=== PATIENT | female | born 1945 | race Two or more races ===

== ENCOUNTER 2018-09-29 23:54 | Inpatient (IN) | payer MEDICARE, MEDICAID ==
[~2018-09-29] VITALS: Ht 149.9 cm; Wt 64.9 kg
[2018-09-30 01:22] LABS: Basophils # (auto) 0.1 uL; Hemoglobin 8.1 g/dL (12.2-16.2); Monocytes # (auto) 1.2 uL; Nucleated Red Blood Cells % 0.1 %
[2018-09-30 01:24] LABS: Basophils % (auto) 1.1 % (0.0-2.0); Eosinophils # (auto) 0.7 uL; Eosinophils % (auto) 10.1 % (0.0-7.0); Hematocrit 23.5 % (36.0-46.0); Lymphocytes # (auto) 1.7 uL; Lymphocytes % (auto) 24.6 % (10.0-50.0); Mean Corpuscular Hemoglobin 32.3 pg (28.0-32.0); Mean Corpuscular Hgb Conc. 34.4 g/dL (32.0-36.0); Monocytes % (auto) 16.4 % (0.0-12.0); Neutrophils # (auto) 3.4 uL; Neutrophils % (auto) 47.8 % (37.0-80.0); Platelet Count (auto) 159 10^3/uL (140-450); Red Cell Distribution Width 17.1 % (11.8-14.3)
[2018-09-30 01:39] LABS: INR 1.1 (0.9-1.15); Partial Thromboplastin Time 28.8 sec (23.64-32.05)
[2018-09-30 01:40] LABS: Albumin 2.4 g/dL (3.4-5.0); BUN/Creatinine Ratio 7.5; Calcium 7.9 mg/dL (8.5-10.1); Potassium 3.7 mmol/L (3.5-5.1)
[2018-09-30 01:45] LABS: Bilirubin, Total 0.9 mg/dL (0.2-1.0); Total Protein 7.3 g/dL (6.4-8.2)
[2018-09-30 01:57] LABS: Urine Bacteria FEW /hpf (None Seen); Urine Blood Negative /uL (Negative); Urine Hyaline Cast MOD /lpf (0 - 2); Urine Specific Gravity 1.017 (1.001-1.035); Urine WBC 10 /hpf (0 - 5)
[2018-09-30] MEDS ORDERED: MORPHINE SULFATE 4 MG/ML SYR/VIAL IV ONE (06:00)
[2018-09-30] MEDS ORDERED: ONDANSETRON HCL 4 MG/2 ML VIAL IV ONE (06:00)
[2018-09-30] MEDS ORDERED: ONDANSETRON HCL 4 MG/2 ML VIAL IV PRN (07:30)
[2018-09-30] MEDS ORDERED: HYDROcodone-ACET 5/325MG TAB PO PRN (07:30)
[2018-09-30] MEDS ORDERED: NITROGLYCERIN 0.4 MG SL TAB SL PRN (07:30)
[2018-09-30] MEDS ORDERED: ACETAMINOPHEN 325 MG TAB PO PRN (07:30)
[2018-09-30] MEDS ORDERED: MORPHINE SULF INJ 2 MG/ML SYRINGE 1ML IV PRN (07:30)
[2018-09-30] MEDS ORDERED: TEMAZEPAM 15 MG CAP PO PRN (07:30)
[2018-09-30] MEDS ORDERED: ENOXAPARIN SOD 60 MG/0.6 ML SYRINGE SC ONE (08:00)
[2018-09-30] MEDS: ASPirin 81 mg TAB PO SCH (10:05)
[2018-09-30] MEDS: PANTOPRAZOLE 40 MG TAB PO SCH (10:05)
[2018-09-30] MEDS ORDERED: NIFE60TA59 PO (10:11)
[2018-09-30] MEDS ORDERED: FURO40TA4 PO (10:11)
[2018-09-30] MEDS ORDERED: LACT10SO3 PO (10:11)
[2018-09-30] MEDS ORDERED: OMEP20TA PO (10:11)
[2018-09-30] MEDS ORDERED: PROP10TA57 PO (10:11)
[2018-09-30] MEDS ORDERED: ASPI81CH43 PO (10:11)
[2018-09-30] MEDS ORDERED: RIFA550T PO (10:11)
[2018-09-30] MEDS ORDERED: PROPRANOLOL HCL 20 MG TAB PO SCH (14:30)
[2018-09-30] MEDS ORDERED: NON (14:43)
[2018-09-30] MEDS ORDERED: PROMETHAZINE HCL 25 MG/ML 1ML ONE (15:28)
[2018-09-30] MEDS ORDERED: FUROSEMIDE 40 MG TAB PO ONE (15:30)
[2018-09-30] MEDS ORDERED: PROMETHAZINE HCL 25 MG/ML 1ML IV PRN (15:30)
[2018-09-30 15:36] LABS: Calcium 7.8 mg/dL (8.5-10.1); Potassium 3.8 mmol/L (3.5-5.1)
[2018-09-30 17:23] VITALS: BP 139/82
[2018-09-30] MEDS: FUROSEMIDE 20 MG/2 ML VIAL IV SCH (18:22)
[2018-09-30] MEDS: Ensure Enlive Strawberry 8oz Bottle PO SCH (18:22)
[2018-09-30 22:00] VITALS: BP 120/47
[2018-09-30] MEDS: LACTULOSE 20Gm/30ML SOLN PO SCH (22:14)
[2018-09-30] MEDS: rifAXIMin 550 MG TAB PO SCH (22:14)
[2018-10-01 05:00] VITALS: BP 119/44
[2018-10-01] MEDS: LACTULOSE 20Gm/30ML SOLN PO SCH ×3 (06:00→21:13)
[2018-10-01] MEDS: FUROSEMIDE 20 MG/2 ML VIAL IV SCH ×2 (06:17→18:17)
[2018-10-01 06:51] LABS: Basophils # (auto) 0.1 uL; Eosinophils # (auto) 0.9 uL; Hemoglobin 7.7 g/dL (12.2-16.2); Monocytes # (auto) 0.6 uL; Nucleated Red Blood Cells % 0.1 %
[2018-10-01 06:54] LABS: Basophils % (auto) 1.1 % (0.0-2.0); Eosinophils % (auto) 13.3 % (0.0-7.0); Hematocrit 22.5 % (36.0-46.0); Lymphocytes % (auto) 30.2 % (10.0-50.0); Mean Corpuscular Hemoglobin 32.3 pg (28.0-32.0); Mean Corpuscular Hgb Conc. 34.2 g/dL (32.0-36.0); Mean Corpuscular Volume 94.3 fL (80.0-100.0); Monocytes % (auto) 9.5 % (0.0-12.0); Neutrophils # (auto) 3.1 uL; Neutrophils % (auto) 45.9 % (37.0-80.0); Platelet Count (auto) 151 10^3/uL (140-450); Red Blood Cells 2.39 10^6/uL (4.0-5.20); Red Cell Distribution Width 16.8 % (11.8-14.3); White Blood Cell 6.7 10^3/uL (4.4-10.8)
[2018-10-01 06:58] LABS: BUN/Creatinine Ratio 9.5; Calcium 7.5 mg/dL (8.5-10.1); Potassium 3.7 mmol/L (3.5-5.1)
[2018-10-01] MEDS: Ensure Enlive Strawberry 8oz Bottle PO SCH ×3 (08:00→19:36)
[2018-10-01] MEDS ORDERED: ADENOSINE 52 MG in GIVE UN-DILUTED 0 ML IV STA (08:31)
[2018-10-01 09:38] VITALS: BP 130/46
[2018-10-01] MEDS: NIFEdipine ER 30 MG TAB PO SCH (10:00)
[2018-10-01] MEDS ORDERED: FUROSEMIDE 40 MG TAB PO SCH (10:00)
[2018-10-01] MEDS ORDERED: cefTRIAXone 1GM/50ML D5W 50 ML IV ONE (10:30)
[2018-10-01] MEDS: PANTOPRAZOLE 40 MG TAB PO SCH (11:32)
[2018-10-01] MEDS: rifAXIMin 550 MG TAB PO SCH ×2 (11:32→21:13)
[2018-10-01] MEDS: ASPirin 81 mg TAB PO SCH (11:33)
[2018-10-01 12:10] VITALS: BP 119/50
[2018-10-01] MEDS ORDERED: ALBUTEROL SULF 2.5 MG/0.5ML(0.5%) NEB SOLN NEB ONE (12:30)
[2018-10-01] MEDS ORDERED: IPRATROPIUM BROM 0.5 MG/2.5ML INH SOL NEB ONE (12:30)
[2018-10-01 13:00] VITALS: BP 132/50
[2018-10-01] MEDS ORDERED: SODIUM CHL 0.9% 1000 ML BAG XX ONE (13:00)
[2018-10-01] MEDS ORDERED: IPRATROPIUM BROM 0.5 MG/2.5ML INH SOL ONE (13:19)
[2018-10-01] MEDS ORDERED: ALBUTEROL SULF 2.5 MG/0.5ML(0.5%) NEB SOLN ONE (13:19)
[2018-10-01 17:11] VITALS: BP 120/39
[2018-10-01] MEDS ORDERED: EPOETIN ALFA 10,000 UNIT/1 ML VIAL SC ONE (21:00)
[2018-10-01 22:50] VITALS: BP 134/50
[2018-10-02 05:20] VITALS: BP 150/57
[2018-10-02 06:18] LABS: Basophils # (auto) 0.1 uL; Basophils % (auto) 0.9 % (0.0-2.0); Eosinophils % (auto) 14.8 % (0.0-7.0); Hematocrit 24.8 % (36.0-46.0); Hemoglobin 8.4 g/dL (12.2-16.2); Lymphocytes # (auto) 1.9 uL; Lymphocytes % (auto) 27.1 % (10.0-50.0); Mean Corpuscular Hemoglobin 32.2 pg (28.0-32.0); Mean Corpuscular Hgb Conc. 33.9 g/dL (32.0-36.0); Mean Corpuscular Volume 94.8 fL (80.0-100.0); Monocytes # (auto) 0.7 uL; Monocytes % (auto) 10.4 % (0.0-12.0); Neutrophils # (auto) 3.2 uL; Neutrophils % (auto) 46.8 % (37.0-80.0); Platelet Count (auto) 124 10^3/uL (140-450); Red Blood Cells 2.62 10^6/uL (4.0-5.20); Red Cell Distribution Width 16.7 % (11.8-14.3); White Blood Cell 6.9 10^3/uL (4.4-10.8)
[2018-10-02] MEDS: LACTULOSE 20Gm/30ML SOLN PO SCH ×3 (06:21→21:40)
[2018-10-02] MEDS: FUROSEMIDE 20 MG/2 ML VIAL IV SCH ×2 (06:22→18:44)
[2018-10-02 06:38] LABS: BUN/Creatinine Ratio 8.5; Calcium 7.2 mg/dL (8.5-10.1); Potassium 3.8 mmol/L (3.5-5.1)
[2018-10-02 09:00] VITALS: BP 150/61
[2018-10-02] MEDS: cefTRIAXone 1GM/50ML D5W 50 ML IV SCH (09:41)
[2018-10-02] MEDS: ASPirin 81 mg TAB PO SCH (09:41)
[2018-10-02] MEDS: rifAXIMin 550 MG TAB PO SCH ×2 (09:42→21:40)
[2018-10-02] MEDS: NIFEdipine ER 30 MG TAB PO SCH (09:42)
[2018-10-02] MEDS: Ensure Enlive Strawberry 8oz Bottle PO SCH ×3 (10:35→18:44)
[2018-10-02] MEDS: PANTOPRAZOLE 40 MG TAB PO SCH (12:38)
[2018-10-02 13:00] VITALS: BP 152/60
[2018-10-02 17:00] VITALS: BP 124/52
[2018-10-02 22:00] VITALS: BP 138/43
[2018-10-03 05:00] VITALS: BP 121/39
[2018-10-03] MEDS ORDERED: SODIUM CHL 0.9% 1000 ML BAG XX ONE (07:00)
[2018-10-03 07:13] LABS: Hemoglobin 7.9 g/dL (12.2-16.2)
[2018-10-03 07:16] LABS: Hematocrit 23.5 % (36.0-46.0); Mean Corpuscular Hemoglobin 31.9 pg (28.0-32.0); Mean Corpuscular Hgb Conc. 33.8 g/dL (32.0-36.0); Mean Corpuscular Volume 94.4 fL (80.0-100.0); Platelet Count (auto) 122 10^3/uL (140-450); Red Blood Cells 2.49 10^6/uL (4.0-5.20); Red Cell Distribution Width 16.2 % (11.8-14.3); White Blood Cell 7.3 10^3/uL (4.4-10.8)
[2018-10-03 07:28] LABS: Band Neutrophils % (manual) 0; Basophils % (manual) 0 (0.0-2.0); Blast Cells 0; Metamyelocytes % 0; Myelocytes % 0; Promyelocytes % 0; Reactive Lymphocytes 0
[2018-10-03 07:29] LABS: Albumin 2.1 g/dL (3.4-5.0); Calcium 7.9 mg/dL (8.5-10.1)
[2018-10-03 07:32] LABS: BUN/Creatinine Ratio 10.7; Bilirubin, Total 0.6 mg/dL (0.2-1.0); Total Protein 6.7 g/dL (6.4-8.2)
[2018-10-03 08:00] VITALS: BP 127/44
[2018-10-03] MEDS: cefTRIAXone 1GM/50ML D5W 50 ML IV SCH (08:05)
[2018-10-03 08:36] LABS: Eosinophils % (manual) 19 (0-7); Lymphocytes % (manual) 30 (10.0-50.0); Monocytes % (manual) 10 (0-12)
[2018-10-03 08:46] VITALS: BP 127/44
[2018-10-03] MEDS: NIFEdipine ER 30 MG TAB PO SCH (10:00)
[2018-10-03] MEDS: Ensure Enlive Strawberry 8oz Bottle PO SCH ×3 (10:22→18:10)
[2018-10-03] MEDS: PANTOPRAZOLE 40 MG TAB PO SCH (10:39)
[2018-10-03] MEDS: ASPirin 81 mg TAB PO SCH (10:39)
[2018-10-03] MEDS: rifAXIMin 550 MG TAB PO SCH ×2 (10:40→21:50)
[2018-10-03 12:00] VITALS: BP 136/51
[2018-10-03] MEDS ORDERED: MORPHINE SULF INJ 2 MG/ML SYRINGE 1ML IV PRN (16:00)
[2018-10-03] MEDS ORDERED: HYDROcodone-ACET 5/325MG TAB PO PRN (16:00)
[2018-10-03 17:00] VITALS: BP 133/54
[2018-10-03] MEDS: LACTULOSE 20Gm/30ML SOLN PO SCH ×2 (18:09→23:48)
[2018-10-03] MEDS ORDERED: EPOETIN ALFA 10,000 UNIT/1 ML VIAL SC ONE (21:00)
[2018-10-03 22:00] VITALS: BP 136/46
[2018-10-04] VITALS (35 sets, daily range): BP systolic 128–178; BP diastolic 43–74
[2018-10-04] MEDS: LACTULOSE 20Gm/30ML SOLN PO SCH ×3 (05:32→23:50)
[2018-10-04 06:28] LABS: Basophils # (auto) 0.1 uL; Lymphocytes # (auto) 1.9 uL; Mean Corpuscular Hemoglobin 32.1 pg (28.0-32.0); Monocytes # (auto) 0.8 uL
[2018-10-04 06:30] LABS: Basophils % (auto) 1.1 % (0.0-2.0); Eosinophils # (auto) 1.1 uL; Hematocrit 24.9 % (36.0-46.0); Hemoglobin 8.4 g/dL (12.2-16.2); Lymphocytes % (auto) 30.6 % (10.0-50.0); Mean Corpuscular Hgb Conc. 33.6 g/dL (32.0-36.0); Mean Corpuscular Volume 95.5 fL (80.0-100.0); Monocytes % (auto) 13.1 % (0.0-12.0); Neutrophils # (auto) 2.3 uL; Neutrophils % (auto) 36.9 % (37.0-80.0); Platelet Count (auto) 103 10^3/uL (140-450); Red Blood Cells 2.61 10^6/uL (4.0-5.20); Red Cell Distribution Width 16.7 % (11.8-14.3); White Blood Cell 6.2 10^3/uL (4.4-10.8)
[2018-10-04 06:35] LABS: INR 1.11 (0.9-1.15); Partial Thromboplastin Time 29.7 sec (23.64-32.05)
[2018-10-04 06:36] LABS: Eosinophils % (auto) 18.3 % (0.0-7.0)
[2018-10-04 06:48] LABS: BUN/Creatinine Ratio 9.3; Calcium 7.9 mg/dL (8.5-10.1); Potassium 4.1 mmol/L (3.5-5.1)
[2018-10-04] MEDS: Ensure Enlive Strawberry 8oz Bottle PO SCH ×2 (08:00→18:00)
[2018-10-04] MEDS ORDERED: IOHEXOL 350 MG/ML 100ML IJ ONE (09:44)
[2018-10-04] MEDS ORDERED: LIDOCAINE 2%HCL (LOCAL ANESTH.) INJ 20ML MDV ONE (09:44)
[2018-10-04] MEDS ORDERED: PROPRANOLOL HCL 20 MG TAB PO ONE (10:00)
[2018-10-04] MEDS: ASPirin 81 mg TAB PO SCH (10:00)
[2018-10-04] MEDS ORDERED: ANGIOMAX 250 MG VIAL IV ONE (10:05)
[2018-10-04] MEDS ORDERED: MIDAZOLAM HCL 1MG/1ML-2 ML VIAL ONE (10:06)
[2018-10-04] MEDS ORDERED: fentaNYL CITRATE 100 MCG/2 ML VL ONE (10:06)
[2018-10-04] MEDS ORDERED: SODIUM CHL 0.9% 50 ML ONE (10:06)
[2018-10-04] MEDS ORDERED: IODIXANOL 320MG/ML 100ML BTL IV ONE ×2 (10:34→10:37)
[2018-10-04] MEDS: NITROGLYCERIN 50MG/250ML 250 ML IV ONE ×2 (10:43→11:00)
[2018-10-04] MEDS ORDERED: NITROGLYCERIN 50MG/250ML 250 ML IV SCH (11:16)
[2018-10-04] MEDS: NIFEdipine ER 30 MG TAB PO SCH (12:00)
[2018-10-04] MEDS: SODIUM CHLORIDE 0.9% 1,000 ML IV SCH (12:00)
[2018-10-04 16:11] LABS: Calcium 7.7 mg/dL (8.5-10.1); Potassium 4.6 mmol/L (3.5-5.1)
[2018-10-04 16:15] LABS: BUN/Creatinine Ratio 8.8; Bilirubin, Total 0.7 mg/dL (0.2-1.0); Total Protein 6.5 g/dL (6.4-8.2)
[2018-10-04] MEDS: rifAXIMin 550 MG TAB PO SCH (21:32)
[2018-10-04] MEDS: ATORVASTATIN 20 MG TAB PO SCH (21:32)
[2018-10-05] VITALS (95 sets, daily range): BP systolic 114–181; BP diastolic 37–105
[2018-10-05] MEDS: SODIUM CHLORIDE 0.9% 1,000 ML IV SCH ×2 (01:32→18:10)
[2018-10-05 04:41] LABS: Basophils # (auto) 0.1 uL; Hemoglobin 7.4 g/dL (12.2-16.2); Neutrophils # (auto) 2.8 uL; Nucleated Red Blood Cells % 0.1 %; White Blood Cell 7.1 10^3/uL (4.4-10.8)
[2018-10-05 04:42] LABS: Basophils % (auto) 1.2 % (0.0-2.0); Eosinophils % (auto) 14.1 % (0.0-7.0); Hematocrit 22.3 % (36.0-46.0); Lymphocytes # (auto) 2.1 uL; Lymphocytes % (auto) 29.7 % (10.0-50.0); Mean Corpuscular Hemoglobin 31.6 pg (28.0-32.0); Mean Corpuscular Hgb Conc. 33.2 g/dL (32.0-36.0); Mean Corpuscular Volume 95.1 fL (80.0-100.0); Monocytes # (auto) 1.1 uL; Monocytes % (auto) 15.1 % (0.0-12.0); Neutrophils % (auto) 39.9 % (37.0-80.0); Platelet Count (auto) 101 10^3/uL (140-450); Red Blood Cells 2.35 10^6/uL (4.0-5.20); Red Cell Distribution Width 16.4 % (11.8-14.3)
[2018-10-05 04:57] LABS: BUN/Creatinine Ratio 10.1; Calcium 7.9 mg/dL (8.5-10.1); Potassium 4.3 mmol/L (3.5-5.1)
[2018-10-05] MEDS: LACTULOSE 20Gm/30ML SOLN PO SCH ×3 (06:00→23:30)
[2018-10-05] MEDS ORDERED: SODIUM CHL 0.9% 1000 ML BAG XX ONE (07:00)
[2018-10-05] MEDS: Ensure Enlive Strawberry 8oz Bottle PO SCH ×3 (08:00→18:00)
[2018-10-05] MEDS: PANTOPRAZOLE 40 MG TAB PO SCH ×2 (10:00→10:36)
[2018-10-05] MEDS: rifAXIMin 550 MG TAB PO SCH ×2 (10:36→21:50)
[2018-10-05] MEDS: ASPirin 81 mg TAB PO SCH (10:36)
[2018-10-05] MEDS: NIFEdipine ER 30 MG TAB PO SCH (15:31)
[2018-10-05] MEDS: cloNIDine HCL 0.1 MG TAB PO PRN (20:29)
[2018-10-05] MEDS: ATORVASTATIN 20 MG TAB PO SCH (21:50)
[2018-10-06] VITALS (50 sets, daily range): BP systolic 98–133; BP diastolic 31–80
[2018-10-06 04:35] LABS: Basophils # (auto) 0.1 uL; Basophils % (auto) 1.1 % (0.0-2.0); Eosinophils # (auto) 0.6 uL; Eosinophils % (auto) 9.6 % (0.0-7.0); Hematocrit 21.8 % (36.0-46.0); Hemoglobin 7.2 g/dL (12.2-16.2); Lymphocytes # (auto) 1.9 uL; Lymphocytes % (auto) 28.8 % (10.0-50.0); Mean Corpuscular Hemoglobin 32.2 pg (28.0-32.0); Mean Corpuscular Hgb Conc. 33.1 g/dL (32.0-36.0); Mean Corpuscular Volume 97.2 fL (80.0-100.0); Monocytes # (auto) 1.1 uL; Monocytes % (auto) 16.6 % (0.0-12.0); Neutrophils # (auto) 2.9 uL; Neutrophils % (auto) 43.9 % (37.0-80.0); Platelet Count (auto) 80 10^3/uL (140-450); Red Blood Cells 2.24 10^6/uL (4.0-5.20); Red Cell Distribution Width 17.4 % (11.8-14.3); White Blood Cell 6.5 10^3/uL (4.4-10.8)
[2018-10-06 04:45] LABS: Potassium 4.1 mmol/L (3.5-5.1)
[2018-10-06 04:56] LABS: Albumin 1.9 g/dL (3.4-5.0); BUN/Creatinine Ratio 8.2; Bilirubin, Total 0.7 mg/dL (0.2-1.0); Calcium 7.4 mg/dL (8.5-10.1)
[2018-10-06] MEDS: LACTULOSE 20Gm/30ML SOLN PO SCH ×4 (06:07→23:45)
[2018-10-06] MEDS: Ensure Enlive Strawberry 8oz Bottle PO SCH ×3 (08:00→18:00)
[2018-10-06] MEDS ORDERED: DEXTROSE (50%) 50ML SYRG IV PRN (09:45)
[2018-10-06] MEDS: ASPirin 81 mg TAB PO SCH (10:00)
[2018-10-06] MEDS: NIFEdipine ER 30 MG TAB PO SCH (10:00)
[2018-10-06] MEDS: PANTOPRAZOLE 40 MG TAB PO SCH (10:38)
[2018-10-06] MEDS: rifAXIMin 550 MG TAB PO SCH ×2 (10:40→22:00)
[2018-10-06] MEDS: SODIUM CHLORIDE 0.9% 1,000 ML IV SCH (10:52)
[2018-10-06] MEDS: InsuLIN REG 1unit/0.01ml Soln (100units/ml) SC SCH ×3 (11:30→22:00)
[2018-10-06] MEDS: ACCU-CHEK COMFORT CURVE STRIP VI SCH ×3 (11:36→22:21)
[2018-10-06] MEDS: ATORVASTATIN 20 MG TAB PO SCH (22:00)
[2018-10-07] VITALS: BP 127/42
[2018-10-07] MEDS: SODIUM CHLORIDE 0.9% 1,000 ML IV SCH (03:32)
[2018-10-07 04:00] VITALS: BP 122/39
[2018-10-07 05:37] LABS: Basophils # (auto) 0.1 uL; Hemoglobin 7.2 g/dL (12.2-16.2); Nucleated Red Blood Cells % 0.1 %; Red Blood Cells 2.23 10^6/uL (4.0-5.20)
[2018-10-07 05:39] LABS: Eosinophils # (auto) 0.9 uL; Eosinophils % (auto) 13.8 % (0.0-7.0); Hematocrit 21.2 % (36.0-46.0); Lymphocytes # (auto) 2.1 uL; Lymphocytes % (auto) 32.5 % (10.0-50.0); Mean Corpuscular Hemoglobin 32.4 pg (28.0-32.0); Mean Corpuscular Hgb Conc. 34.1 g/dL (32.0-36.0); Mean Corpuscular Volume 95.1 fL (80.0-100.0); Monocytes # (auto) 1.1 uL; Monocytes % (auto) 16.3 % (0.0-12.0); Neutrophils # (auto) 2.4 uL; Neutrophils % (auto) 36.4 % (37.0-80.0); Platelet Count (auto) 84 10^3/uL (140-450); Red Cell Distribution Width 16.8 % (11.8-14.3); White Blood Cell 6.5 10^3/uL (4.4-10.8)
[2018-10-07] MEDS: LACTULOSE 20Gm/30ML SOLN PO SCH ×4 (06:00→18:22)
[2018-10-07 06:04] LABS: Potassium 4.3 mmol/L (3.5-5.1)
[2018-10-07 06:15] LABS: BUN/Creatinine Ratio 10.3; Bilirubin, Total 0.7 mg/dL (0.2-1.0); Calcium 7.8 mg/dL (8.5-10.1); Total Protein 6.3 g/dL (6.4-8.2)
[2018-10-07] MEDS: InsuLIN REG 1unit/0.01ml Soln (100units/ml) SC SCH ×4 (07:00→22:00)
[2018-10-07] MEDS: ACCU-CHEK COMFORT CURVE STRIP VI SCH ×4 (07:29→22:11)
[2018-10-07 07:40] VITALS: BP 126/48
[2018-10-07] MEDS: Ensure Enlive Strawberry 8oz Bottle PO SCH ×3 (09:41→18:02)
[2018-10-07] MEDS: ASPirin 81 mg TAB PO SCH (09:50)
[2018-10-07] MEDS: rifAXIMin 550 MG TAB PO SCH ×2 (09:50→22:10)
[2018-10-07] MEDS: PANTOPRAZOLE 40 MG TAB PO SCH (09:50)
[2018-10-07] MEDS: NIFEdipine ER 30 MG TAB PO SCH ×2 (09:50→10:00)
[2018-10-07 11:45] VITALS: BP 117/47
[2018-10-07] MEDS ORDERED: ceFAZolin 1GM/50ML 50 ML IV ONE (13:00)
[2018-10-07] MEDS ORDERED: VANCOMYCIN 1GM/250ML 250 ML IV ONE (13:00)
[2018-10-07] MEDS ORDERED: ACCU-CHEK COMFORT CURVE STRIP VI ONE (13:00)
[2018-10-07 13:43] LABS: Eosinophils % (auto) 12.9 % (0.0-7.0); Hemoglobin 7.6 g/dL (12.2-16.2); Lymphocytes # (auto) 1.4 uL; Mean Corpuscular Volume 95.7 fL (80.0-100.0); Monocytes # (auto) 0.8 uL; Nucleated Red Blood Cells % 0.1 %
[2018-10-07 13:45] LABS: Basophils # (auto) 0 uL; Basophils % (auto) 0.9 % (0.0-2.0); Eosinophils # (auto) 0.7 uL; Hematocrit 22.7 % (36.0-46.0); Lymphocytes % (auto) 24.9 % (10.0-50.0); Mean Corpuscular Hemoglobin 31.9 pg (28.0-32.0); Mean Corpuscular Hgb Conc. 33.3 g/dL (32.0-36.0); Monocytes % (auto) 14.7 % (0.0-12.0); Neutrophils # (auto) 2.7 uL; Neutrophils % (auto) 46.6 % (37.0-80.0); Platelet Count (auto) 93 10^3/uL (140-450); Red Blood Cells 2.37 10^6/uL (4.0-5.20); Red Cell Distribution Width 17.1 % (11.8-14.3); White Blood Cell 5.8 10^3/uL (4.4-10.8)
[2018-10-07 13:59] LABS: Calcium 7.9 mg/dL (8.5-10.1); Potassium 4.5 mmol/L (3.5-5.1)
[2018-10-07 14:03] LABS: BUN/Creatinine Ratio 10.8; Bilirubin, Total 0.7 mg/dL (0.2-1.0); Total Protein 6.7 g/dL (6.4-8.2)
[2018-10-07 15:45] VITALS: BP 125/41
[2018-10-07 15:54] LABS: Urine Bacteria NONE SEEN /hpf (None Seen); Urine Blood Negative /uL (Negative); Urine Specific Gravity 1.024 (1.001-1.035); Urine WBC 2 /hpf (0 - 5)
[2018-10-07] MEDS ORDERED: TEMAZEPAM 15 MG CAP PO PRN (17:15)
[2018-10-07] MEDS ORDERED: HYDROcodone-ACET 5/325MG TAB PO PRN (17:15)
[2018-10-07] MEDS ORDERED: MORPHINE SULF INJ 2 MG/ML SYRINGE 1ML IV PRN (17:30)
[2018-10-07 20:00] VITALS: BP 134/48
[2018-10-07] MEDS ORDERED: MUPIROCIN 2% OINT 15gm or 22gm TOP SCH (21:00)
[2018-10-07] MEDS ORDERED: ASCORBIC ACID 500 MG TAB PO ONE (22:00)
[2018-10-07] MEDS: ATORVASTATIN 20 MG TAB PO SCH (22:09)
[2018-10-08] VITALS (15 sets, daily range): BP systolic 126–179; BP diastolic 46–71
[2018-10-08] MEDS ORDERED: CHLORHEXIDINE 4% TOPICAL soln 118ml TOP ONE (02:00)
[2018-10-08] MEDS: LACTULOSE 20Gm/30ML SOLN PO SCH ×4 (06:00→18:00)
[2018-10-08] MEDS: InsuLIN REG 1unit/0.01ml Soln (100units/ml) SC SCH ×4 (06:43→22:00)
[2018-10-08] MEDS: ACCU-CHEK COMFORT CURVE STRIP VI SCH ×4 (06:44→22:00)
[2018-10-08] MEDS ORDERED: SODIUM CHL 0.9% 1000 ML BAG XX ONE (07:00)
[2018-10-08] MEDS: Ensure Enlive Strawberry 8oz Bottle PO SCH ×3 (08:00→18:02)
[2018-10-08 09:54] LABS: Potassium 4.6 mmol/L (3.5-5.1)
[2018-10-08] MEDS: PANTOPRAZOLE 40 MG TAB PO SCH (10:00)
[2018-10-08] MEDS: rifAXIMin 550 MG TAB PO SCH ×2 (10:00→21:45)
[2018-10-08] MEDS: NIFEdipine ER 30 MG TAB PO SCH (10:00)
[2018-10-08 10:04] LABS: BUN/Creatinine Ratio 13.3; Bilirubin, Total 0.8 mg/dL (0.2-1.0); Calcium 8.1 mg/dL (8.5-10.1); Total Protein 6.7 g/dL (6.4-8.2)
[2018-10-08] MEDS ORDERED: CHLORHEXIDINE 0.12% ORAL rinse 473ML MT ONE (13:00)
[2018-10-08 17:46] LABS: Hematocrit 27.4 % (36.0-46.0); Hemoglobin 9.1 g/dL (12.2-16.2)
[2018-10-08] MEDS ORDERED: EPOETIN ALFA 10,000 UNIT/1 ML VIAL SC ONE (21:00)
[2018-10-08] MEDS: MUPIROCIN 2% OINT 15gm or 22gm TOP SCH (21:45)
[2018-10-08] MEDS: cloNIDine HCL 0.1 MG TAB PO PRN (21:46)
[2018-10-08] MEDS ORDERED: ASCORBIC ACID 500 MG TAB PO ONE (22:00)
[2018-10-08] MEDS: ATORVASTATIN 20 MG TAB PO SCH (22:00)
[2018-10-09] VITALS (51 sets, daily range): BP systolic 28–193; BP diastolic 17–71
[2018-10-09] MEDS ORDERED: CHLORHEXIDINE 4% TOPICAL soln 118ml TOP ONE (02:00)
[2018-10-09 04:45] LABS: Basophils # (auto) 0.1 uL; Basophils % (auto) 1.6 % (0.0-2.0); Calcium 7.9 mg/dL (8.5-10.1); Eosinophils # (auto) 0.8 uL; Eosinophils % (auto) 13.5 % (0.0-7.0); Hematocrit 27.2 % (36.0-46.0); Hemoglobin 8.9 g/dL (12.2-16.2); Lymphocytes # (auto) 1.5 uL; Lymphocytes % (auto) 26.1 % (10.0-50.0); Mean Corpuscular Hemoglobin 30.4 pg (28.0-32.0); Mean Corpuscular Hgb Conc. 32.8 g/dL (32.0-36.0); Mean Corpuscular Volume 92.7 fL (80.0-100.0); Monocytes # (auto) 0.9 uL; Monocytes % (auto) 15.5 % (0.0-12.0); Neutrophils # (auto) 2.5 uL; Neutrophils % (auto) 43.3 % (37.0-80.0); Nucleated Red Blood Cells % 0.1 %; Platelet Count (auto) 74 10^3/uL (140-450); Potassium 4.2 mmol/L (3.5-5.1); Red Blood Cells 2.93 10^6/uL (4.0-5.20); White Blood Cell 5.8 10^3/uL (4.4-10.8)
[2018-10-09 04:48] LABS: Red Cell Distribution Width 20.6 % (11.8-14.3)
[2018-10-09 04:49] LABS: BUN/Creatinine Ratio 13.5; Bilirubin, Total 1.1 mg/dL (0.2-1.0); Total Protein 6.5 g/dL (6.4-8.2)
[2018-10-09] MEDS: LACTULOSE 20Gm/30ML SOLN PO SCH ×3 (05:39→11:13)
[2018-10-09] MEDS: InsuLIN REG 1unit/0.01ml Soln (100units/ml) SC SCH ×2 (05:39→11:13)
[2018-10-09] MEDS ORDERED: CHLORHEXIDINE 0.12% ORAL rinse 473ML MT ONE (06:00)
[2018-10-09] MEDS ORDERED: HEPARIN 1,000 UNITS/ml 1ML VIAL ONE (06:11)
[2018-10-09] MEDS ORDERED: PAPAVERINE HCL 60 MG/2 ML 2ML VIAL ONE (06:11)
[2018-10-09] MEDS ORDERED: BACITRACIN INJ 50000 UNIT VIAL ONE (06:11)
[2018-10-09] MEDS ORDERED: NEOMYCIN-BACITRACIN-POLYM 15GM TOP OINT TOP ONE (06:12)
[2018-10-09] MEDS ORDERED: NITROGLYCERIN 50MG/250ML 250 ML IV ONE (06:26)
[2018-10-09] MEDS ORDERED: FENTANYL CITRATE ONE (06:47)
[2018-10-09] MEDS ORDERED: MORPHINE SULFATE INJECTION 1 ML ONE (06:48)
[2018-10-09] MEDS ORDERED: KETAMINE HCL 1 ML ONE (06:48)
[2018-10-09] MEDS ORDERED: MIDAZOLAM HCL 1MG/1ML-2 ML VIAL ONE (06:50)
[2018-10-09] MEDS ORDERED: fentaNYL CITRATE 5 ML ONE (06:52)
[2018-10-09] MEDS: MUPIROCIN 2% OINT 15gm or 22gm TOP SCH (07:00)
[2018-10-09] MEDS: ACCU-CHEK COMFORT CURVE STRIP VI SCH ×9 (07:00→23:00)
[2018-10-09] MEDS ORDERED: SODIUM CHL 0.9% 1000 ML BAG XX ONE (07:00)
[2018-10-09] MEDS ORDERED: ceFAZolin 1GM/50ML 50 ML IV ONE (07:00)
[2018-10-09] MEDS ORDERED: VANCOMYCIN 1GM/250ML 250 ML IV ONE (07:00)
[2018-10-09] MEDS: Ensure Enlive Strawberry 8oz Bottle PO SCH ×2 (08:00→11:13)
[2018-10-09] MEDS ORDERED: EPINEPHrine HCL 4 MG in D5W 5% 250 ML IV ONE (08:00)
[2018-10-09] MEDS ORDERED: AMINOCAPROIC ACID 10 GM in SODIUM CHL 0.9% 100 ML IV ONE (08:00)
[2018-10-09] MEDS ORDERED: PHENYLEPHRINE INJ 20 MG in SODIUM CHL 0.9% 250 ML IV ONE (08:00)
[2018-10-09] MEDS ORDERED: NOREPINEPHRINE 8 MG/250ML KIT 250 ML IV ONE (08:00)
[2018-10-09] MEDS ORDERED: HEPARIN 30000 UNITS in SODIUM CHLORIDE 0.9% 1000 ML IV ONE (08:00)
[2018-10-09] MEDS ORDERED: AMINOCAPROIC ACID 5 GM in SODIUM CHL 0.9% 250 ML IV ONE (08:00)
[2018-10-09] MEDS ORDERED: InsuLIN R (HUMAN) 100 UNITS in SODIUM CHL 0.9% 99 ML IV ONE (08:00)
[2018-10-09] MEDS ORDERED: MANNITOL FTV 25% 12.5 GM/50 ML 100 ML IV ONE (08:18)
[2018-10-09] MEDS ORDERED: PLASMA-LYTE A pH7.4 6,000 ML INJ ONE (08:19)
[2018-10-09] MEDS ORDERED: MANNITOL 20 % (20GM/100ML) 500 ML IV ONE (08:19)
[2018-10-09] MEDS ORDERED: ALBUMIN 25% IV ONE (08:19)
[2018-10-09] MEDS ORDERED: ALBUMIN 5% 250 ML IV ONE (08:26)
[2018-10-09] MEDS: PANTOPRAZOLE 40 MG TAB PO SCH (09:27)
[2018-10-09] MEDS: rifAXIMin 550 MG TAB PO SCH (09:27)
[2018-10-09] MEDS: NIFEdipine ER 30 MG TAB PO SCH (09:27)
[2018-10-09] MEDS ORDERED: PROTAMINE SULFATE 250 MG/25 ML VL IV ONE ×3 (12:00→13:45)
[2018-10-09] MEDS ORDERED: phytonadione 1 ML ONE (12:25)
[2018-10-09] MEDS ORDERED: VANCOMYCIN HCL 1000 MG VL ONE ×2 (12:36→12:46)
[2018-10-09] MEDS ORDERED: FUROSEMIDE INJECTION 0 ML ONE (13:18)
[2018-10-09] MEDS ORDERED: PROPOFOL 100 ML IV ONE (13:19)
[2018-10-09] MEDS ORDERED: FUROSEMIDE INJECTION 10 ML ONE (13:45)
[2018-10-09] MEDS ORDERED: ADENOSINE 6 MG/2 ML INJ IV ONE (14:05)
[2018-10-09] MEDS ORDERED: SODIUM BICARBONATE 8.4 % INJ 50ML VIAL IV ONE (14:05)
[2018-10-09] MEDS ORDERED: CALCIUM GLUC 4.65 MEQ/10ML IV ONE (14:05)
[2018-10-09] MEDS ORDERED: POTASSIUM CHL 2MEQ/ML 20ML IV ONE (14:05)
[2018-10-09] MEDS ORDERED: CALCIUM CHLOR(10%) 100MG/ML 10ML SYRINGE IV ONE (14:05)
[2018-10-09] MEDS ORDERED: MAGNESIUM SULF 50% 40 MEQ/10 ML VL IV ONE (14:05)
[2018-10-09] MEDS ORDERED: PHENYLEPHRINE HCL 10 MG/ML VL IV ONE (14:05)
[2018-10-09] MEDS ORDERED: TRANEXAMIC ACID 1,000 mg/10ml INJ VIAL IV ONE (14:05)
[2018-10-09 14:12] LABS: Potassium 4.3 mmol/L (3.5-5.1)
[2018-10-09 14:14] LABS: BUN/Creatinine Ratio 11.8
[2018-10-09 14:17] LABS: Bilirubin, Total 1.7 mg/dL (0.2-1.0); Total Protein 5.1 g/dL (6.4-8.2)
[2018-10-09 14:22] LABS: INR 1.61 (0.9-1.15); Partial Thromboplastin Time 44.8 sec (23.64-32.05)
[2018-10-09 15:00] LABS: Basophils # (auto) 0.1 uL; Basophils % (auto) 0.7 % (0.0-2.0); Eosinophils # (auto) 0.2 uL; Eosinophils % (auto) 1.9 % (0.0-7.0); Hematocrit 26.5 % (36.0-46.0); Hemoglobin 9.1 g/dL (12.2-16.2); Lymphocytes # (auto) 0.7 uL; Mean Corpuscular Hemoglobin 31.3 pg (28.0-32.0); Mean Corpuscular Hgb Conc. 34.5 g/dL (32.0-36.0); Mean Corpuscular Volume 90.9 fL (80.0-100.0); Monocytes # (auto) 0.5 uL; Monocytes % (auto) 5.2 % (0.0-12.0); Neutrophils # (auto) 7.5 uL; Neutrophils % (auto) 84.2 % (37.0-80.0); Platelet Count (auto) 69 10^3/uL (140-450); Red Blood Cells 2.91 10^6/uL (4.0-5.20)
[2018-10-09] MEDS: PROPOFOL 100 ML IV SCH (16:16)
[2018-10-09] MEDS: NITROGLYCERIN 50MG/250ML 250 ML IV SCH (16:16)
[2018-10-09] MEDS: SODIUM CHLORIDE 0.9% 500 ML IV SCH (16:30)
[2018-10-09] MEDS: VASOPRESSIN 50 UNITS in D5W 5% 247.5 ML IV SCH (16:31)
[2018-10-09] MEDS: NOREPINEPHRINE 8 MG/250ML KIT 250 ML IV SCH (16:31)
[2018-10-09] MEDS ORDERED: INSULIN DRIP 100 UNIT/100ML 100 ML IV SCH (16:31)
[2018-10-09] MEDS ORDERED: PHENYLEPHRINE IV 250 ML IV SCH (16:31)
[2018-10-09] MEDS ORDERED: DEXTROSE (50%) 50ML SYRG IV PRN (16:45)
[2018-10-09] MEDS ORDERED: MORPHINE SULFATE 4 MG/ML SYR/VIAL IV PRN ×2 (16:45)
[2018-10-09] MEDS ORDERED: ONDANSETRON HCL 4 MG/2 ML VIAL IV PRN (16:45)
[2018-10-09] MEDS ORDERED: SODIUM BICARBONATE 8.4% INJ 50ML SYRINGE IV PRN (16:45)
[2018-10-09] MEDS ORDERED: ceFAZolin 1GM/50ML 50 ML IV SCH (16:45)
[2018-10-09] MEDS ORDERED: MAGNESIUM SULFATE 1GM/100ML 100 ML IV PRN (16:45)
[2018-10-09] MEDS ORDERED: VANCOMYCIN 1GM/250ML 250 ML IV SCH (16:45)
[2018-10-09 16:57] LABS: Hemoglobin 7.5 g/dL (12.2-16.2)
[2018-10-09] MEDS ORDERED: PHENYLEPHRINE HCL 10 MG/ML VL ONE (17:02)
[2018-10-09 17:10] LABS: Mean Corpuscular Volume 91.3 fL (80.0-100.0)
[2018-10-09 17:11] LABS: Albumin 2.6 g/dL (3.4-5.0); BUN/Creatinine Ratio 12.2; Calcium 9.7 mg/dL (8.5-10.1); Magnesium 3.2 mg/dL (1.6-2.6); Potassium 4.4 mmol/L (3.5-5.1)
[2018-10-09 17:13] LABS: Hematocrit 21.7 % (36.0-46.0); Mean Corpuscular Hemoglobin 31.5 pg (28.0-32.0); Mean Corpuscular Hgb Conc. 34.5 g/dL (32.0-36.0); Platelet Count (auto) 52 10^3/uL (140-450); Red Blood Cells 2.38 10^6/uL (4.0-5.20); Red Cell Distribution Width 16.8 % (11.8-14.3); White Blood Cell 9.1 10^3/uL (4.4-10.8)
[2018-10-09] MEDS: PHENYLEPHRINE INJ 40 MG in SODIUM CHL 0.9% 250 ML IV SCH (17:17)
[2018-10-09 17:18] LABS: Basophils % (manual) 0 (0.0-2.0); Blast Cells 0; Eosinophils % (manual) 0 (0-7); INR 1.38 (0.9-1.15); Metamyelocytes % 0; Myelocytes % 0; Partial Thromboplastin Time 34.2 sec (23.64-32.05); Promyelocytes % 0; Reactive Lymphocytes 0
[2018-10-09 17:21] LABS: Bilirubin, Total 2.4 mg/dL (0.2-1.0); Total Protein 4.5 g/dL (6.4-8.2)
[2018-10-09 17:22] LABS: Phosphorus 5.8 mg/dL (2.5-4.90)
[2018-10-09] MEDS ORDERED: COAGULATION FACTOR VIIA (RECOM 2 MG INJ IV ONE (18:15)
[2018-10-09 19:17] LABS: Band Neutrophils % (manual) 7; Lymphocytes % (manual) 6 (10.0-50.0); Monocytes % (manual) 3 (0-12)
[2018-10-09] MEDS ORDERED: EPOETIN ALFA 10,000 UNIT/1 ML VIAL SC ONE (21:00)
[2018-10-09] MEDS: ceFAZolin 1GM/50ML 50 ML IV SCH (22:20)
[2018-10-09 22:43] LABS: Eosinophils # (auto) 0 uL; Monocytes # (auto) 0.7 uL; Nucleated Red Blood Cells % 0.1 %
[2018-10-09 22:45] LABS: Basophils # (auto) 0 uL; Basophils % (auto) 0.1 % (0.0-2.0); Lymphocytes # (auto) 0.4 uL; Lymphocytes % (auto) 3.4 % (10.0-50.0); Mean Corpuscular Hemoglobin 31.3 pg (28.0-32.0); Mean Corpuscular Hgb Conc. 34.1 g/dL (32.0-36.0); Mean Corpuscular Volume 91.6 fL (80.0-100.0); Monocytes % (auto) 6.1 % (0.0-12.0); Neutrophils # (auto) 10.3 uL; Neutrophils % (auto) 90.4 % (37.0-80.0); Platelet Count (auto) 148 10^3/uL (140-450); Red Blood Cells 2.18 10^6/uL (4.0-5.20); Red Cell Distribution Width 15.8 % (11.8-14.3); White Blood Cell 11.4 10^3/uL (4.4-10.8)
[2018-10-09 22:52] LABS: Hemoglobin 6.8 g/dL (12.2-16.2)
[2018-10-09 22:56] LABS: INR 0.99 (0.9-1.15); Partial Thromboplastin Time 31.3 sec (23.64-32.05)
[2018-10-09 23:01] LABS: BUN/Creatinine Ratio 8.2; Calcium 8.1 mg/dL (8.5-10.1); Magnesium 2.7 mg/dL (1.6-2.6); Potassium 4.2 mmol/L (3.5-5.1)
[2018-10-09] MEDS: VANCOMYCIN 1GM/250ML 250 ML IV SCH (23:31)
[2018-10-10] VITALS (111 sets, daily range): BP systolic 1–271; BP diastolic 0–266
[2018-10-10] MEDS: ACCU-CHEK COMFORT CURVE STRIP VI SCH ×20 (00:29→23:00)
[2018-10-10 04:26] LABS: Basophils # (auto) 0 uL; Basophils % (auto) 0.1 % (0.0-2.0); Eosinophils # (auto) 0 uL; Eosinophils % (auto) 0.1 % (0.0-7.0); Hematocrit 29.7 % (36.0-46.0); Hemoglobin 9.9 g/dL (12.2-16.2); Lymphocytes # (auto) 0.6 uL; Lymphocytes % (auto) 4.6 % (10.0-50.0); Mean Corpuscular Hemoglobin 30.6 pg (28.0-32.0); Mean Corpuscular Hgb Conc. 33.4 g/dL (32.0-36.0); Mean Corpuscular Volume 91.6 fL (80.0-100.0); Monocytes # (auto) 0.7 uL; Monocytes % (auto) 6.2 % (0.0-12.0); Neutrophils # (auto) 10.7 uL; Nucleated Red Blood Cells % 0.1 %; Platelet Count (auto) 108 10^3/uL (140-450); Red Blood Cells 3.24 10^6/uL (4.0-5.20); Red Cell Distribution Width 15.7 % (11.8-14.3)
[2018-10-10] MEDS ORDERED: COAGULATION FACTOR VIIA (RECOM 2 MG INJ IV ONE (04:30)
[2018-10-10 04:45] LABS: INR 1.14 (0.9-1.15); Partial Thromboplastin Time 42.1 sec (23.64-32.05)
[2018-10-10 04:51] LABS: BUN/Creatinine Ratio 7.8; Calcium 8.4 mg/dL (8.5-10.1); Magnesium 2.8 mg/dL (1.6-2.6); Potassium 4.8 mmol/L (3.5-5.1)
[2018-10-10] MEDS ORDERED: phytonadione 10 MG in SODIUM CHL 0.9% 50 ML IV ONE (05:00)
[2018-10-10] MEDS: ceFAZolin 1GM/50ML 50 ML IV SCH ×2 (05:00→13:10)
[2018-10-10] MEDS ORDERED: PHYTONADIONE (VIT K)10 MG/ML 1ML VIAL SUBCUT ONE (05:00)
[2018-10-10] MEDS: CALCIUM GLUC 4.65meq/50ml D5AE 50 ML IV PRN (06:45)
[2018-10-10] MEDS ORDERED: CALCIUM GLUC 4.65meq/50ml D5AE 50 ML IV ONE ×2 (06:45→19:15)
[2018-10-10] MEDS ORDERED: DESMOPRESSIN INJECTION 20 MCG in SODIUM CHL 0.9% 50 ML IV ONE (07:00)
[2018-10-10] MEDS ORDERED: AMINOCAPROIC ACID IV ONE ×2 (08:00)
[2018-10-10] MEDS ORDERED: COAGULATION FACTOR VIIA (RECOM 5 MG INJ IV ONE (08:00)
[2018-10-10] MEDS ORDERED: SODIUM CHL 0.9% IV ONE ×2 (08:00)
[2018-10-10] MEDS ORDERED: SODIUM BICARBONATE 8.4 % INJ 50ML VIAL IV ONE ×5 (08:47→17:15)
[2018-10-10 09:25] LABS: Basophils # (auto) 0 uL; Eosinophils # (auto) 0 uL; Hemoglobin 7.4 g/dL (12.2-16.2); Lymphocytes # (auto) 0.9 uL; Mean Corpuscular Hgb Conc. 33.1 g/dL (32.0-36.0); Monocytes # (auto) 0.9 uL; Neutrophils # (auto) 11.2 uL
[2018-10-10 09:26] LABS: Basophils % (auto) 0.2 % (0.0-2.0); Eosinophils % (auto) 0.2 % (0.0-7.0); Hematocrit 22.2 % (36.0-46.0); Lymphocytes % (auto) 6.7 % (10.0-50.0); Mean Corpuscular Hemoglobin 30.4 pg (28.0-32.0); Mean Corpuscular Volume 91.6 fL (80.0-100.0); Monocytes % (auto) 7.2 % (0.0-12.0); Neutrophils % (auto) 85.7 % (37.0-80.0); Nucleated Red Blood Cells % 0.2 %; Platelet Count (auto) 85 10^3/uL (140-450); Red Blood Cells 2.42 10^6/uL (4.0-5.20); Red Cell Distribution Width 16.1 % (11.8-14.3); White Blood Cell 13.1 10^3/uL (4.4-10.8)
[2018-10-10 09:41] LABS: INR 1.29 (0.9-1.15); Partial Thromboplastin Time 47.6 sec (23.64-32.05)
[2018-10-10] MEDS: VANCOMYCIN 1GM/250ML 250 ML IV SCH (09:44)
[2018-10-10 09:46] LABS: Albumin 1.8 g/dL (3.4-5.0); Calcium 8.8 mg/dL (8.5-10.1); Potassium 4.5 mmol/L (3.5-5.1)
[2018-10-10 10:00] LABS: BUN/Creatinine Ratio 7.3; Bilirubin, Total 3.1 mg/dL (0.2-1.0); Total Protein 3.5 g/dL (6.4-8.2)
[2018-10-10] MEDS: PANTOPRAZOLE 40 MG/10 ML VIAL INJ IV SCH (10:00)
[2018-10-10 10:22] LABS: Phosphorus 9.1 mg/dL (2.5-4.90)
[2018-10-10] MEDS ORDERED: D5W 5% 1,000 ML IV SCH ×2 (11:15→12:00)
[2018-10-10] MEDS ORDERED: DEXTROSE (25%) 10 ML SYRG IV ONE (11:15)
[2018-10-10 12:34] LABS: Lactic Acid w/Reflex 25.4 mmol/L (0.4-2.0)
[2018-10-10 13:41] LABS: Magnesium 2.9 mg/dL (1.6-2.6); Potassium 4.4 mmol/L (3.5-5.1)
[2018-10-10] MEDS: COAGULATION FACTOR VIIA (RECOM 2 MG INJ IV SCH ×4 (14:00→23:40)
[2018-10-10] MEDS: NOREPINEPHRINE 8 MG/250ML KIT 250 ML IV SCH (14:27)
[2018-10-10] MEDS: PHENYLEPHRINE INJ 40 MG in SODIUM CHL 0.9% 250 ML IV SCH ×2 (14:31→18:08)
[2018-10-10] MEDS ORDERED: SODIUM BICARBONATE 50ML VIAL 150 ML in D5W/SOD CHL 0.45% 1,000 ML IV SCH (15:00)
[2018-10-10] MEDS ORDERED: SODIUM BICARBONATE 8.4% INJ 50ML SYRINGE ONE (15:06)
[2018-10-10] MEDS ORDERED: IOHEXOL 300 MG/ML 100ML BOTTLE IJ ONE (15:09)
[2018-10-10] MEDS ORDERED: IOHEXOL 350 MG/ML 100ML IJ ONE (15:16)
[2018-10-10] MEDS: PROPOFOL 100 ML IV SCH (15:30)
[2018-10-10] MEDS: VASOPRESSIN 50 UNITS in D5W 5% 247.5 ML IV SCH (16:31)
[2018-10-10] MEDS: NITROGLYCERIN 50MG/250ML 250 ML IV SCH (16:31)
[2018-10-10] MEDS: SODIUM CHLORIDE 0.9% 500 ML IV SCH (17:09)
[2018-10-10] MEDS ORDERED: VANCOMYCIN PER PHARMACY 0 MG IV SCH (17:45)
[2018-10-10 18:30] LABS: Basophils # (auto) 0 uL; Nucleated Red Blood Cells % 0.5 %
[2018-10-10] MEDS ORDERED: GOLYTELY 4L KIT PO ONE (18:30)
[2018-10-10 18:35] LABS: Basophils % (auto) 0.3 % (0.0-2.0); Eosinophils # (auto) 0.1 uL; Eosinophils % (auto) 0.5 % (0.0-7.0); Hematocrit 20.4 % (36.0-46.0); Lymphocytes # (auto) 2.1 uL; Lymphocytes % (auto) 14.8 % (10.0-50.0); Mean Corpuscular Hemoglobin 30.8 pg (28.0-32.0); Mean Corpuscular Hgb Conc. 32.2 g/dL (32.0-36.0); Mean Corpuscular Volume 95.7 fL (80.0-100.0); Monocytes % (auto) 6.9 % (0.0-12.0); Neutrophils # (auto) 11.2 uL; Neutrophils % (auto) 77.5 % (37.0-80.0); Platelet Count (auto) 64 10^3/uL (140-450); Red Blood Cells 2.13 10^6/uL (4.0-5.20); Red Cell Distribution Width 15.8 % (11.8-14.3); White Blood Cell 14.4 10^3/uL (4.4-10.8)
[2018-10-10 18:36] LABS: Hemoglobin 6.6 g/dL (12.2-16.2)
[2018-10-10 18:47] LABS: Albumin 1.3 g/dL (3.4-5.0); Calcium 8.1 mg/dL (8.5-10.1); Magnesium 3.1 mg/dL (1.6-2.6); Potassium 4.7 mmol/L (3.5-5.1)
[2018-10-10] MEDS: ALBUTEROL SULF 2.5 MG/0.5ML(0.5%) NEB SOLN NEB SCH ×2 (18:54→23:55)
[2018-10-10] MEDS: IPRATROPIUM BROM 0.5 MG/2.5ML INH SOL NEB SCH ×2 (18:55→23:55)
[2018-10-10 19:03] LABS: Bilirubin, Total 2.3 mg/dL (0.2-1.0); Total Protein 2.8 g/dL (6.4-8.2)
[2018-10-10 19:38] LABS: Urine WBC None Seen /hpf (0 - 5)
[2018-10-10 19:44] LABS: Phosphorus 12.4 mg/dL (2.5-4.90)
[2018-10-10 19:48] LABS: INR 1.72 (0.9-1.15)
[2018-10-10 20:07] LABS: Urine Bacteria FEW /hpf (None Seen); Urine Blood 1+ /uL (Negative); Urine Hyaline Cast MOD /lpf (0 - 2)
[2018-10-10 20:24] LABS: Partial Thromboplastin Time 83.4 sec (23.64-32.05)
[2018-10-10] MEDS ORDERED: INSULIN DRIP 100 UNIT/100ML 100 ML IV SCH (20:39)
[2018-10-10] MEDS: INSULIN DRIP 100 UNIT/100ML 100 ML IV SCH (21:30)
[2018-10-10] MEDS: MEROPENEM 500MG IVPB 50 ML IV SCH (22:00)
[2018-10-10] MEDS: SODIUM BICARBONATE 50ML VIAL 150 ML in D5W/SOD CHL 0.45% 1,000 ML IV SCH (22:20)
[2018-10-10] MEDS ORDERED: ALBUMIN 5% 250 ML IV ONE (23:45)
[2018-10-11] VITALS (112 sets, daily range): BP systolic 24–167; BP diastolic 9–50
[2018-10-11 00:16] LABS: Basophils # (auto) 0.1 uL; Basophils % (auto) 0.4 % (0.0-2.0); Eosinophils # (auto) 0.1 uL; Eosinophils % (auto) 0.6 % (0.0-7.0); Hematocrit 26.1 % (36.0-46.0); Hemoglobin 8.5 g/dL (12.2-16.2); Lymphocytes % (auto) 13.6 % (10.0-50.0); Mean Corpuscular Hemoglobin 31.1 pg (28.0-32.0); Mean Corpuscular Hgb Conc. 32.6 g/dL (32.0-36.0); Mean Corpuscular Volume 95.2 fL (80.0-100.0); Monocytes # (auto) 0.2 uL; Monocytes % (auto) 1.5 % (0.0-12.0); Neutrophils # (auto) 12.2 uL; Neutrophils % (auto) 83.9 % (37.0-80.0); Platelet Count (auto) 125 10^3/uL (140-450); Red Blood Cells 2.74 10^6/uL (4.0-5.20); Red Cell Distribution Width 15.8 % (11.8-14.3); White Blood Cell 14.5 10^3/uL (4.4-10.8)
[2018-10-11] MEDS: ACCU-CHEK COMFORT CURVE STRIP VI SCH ×22 (00:19→20:00)
[2018-10-11 00:39] LABS: INR 1.83 (0.9-1.15)
[2018-10-11 00:47] LABS: Partial Thromboplastin Time 88.3 sec (23.64-32.05)
[2018-10-11 00:48] LABS: BUN/Creatinine Ratio 7.1; Calcium 7.9 mg/dL (8.5-10.1); Potassium 4.8 mmol/L (3.5-5.1)
[2018-10-11] MEDS: CALCIUM GLUC 4.65meq/50ml D5AE 50 ML IV PRN (01:25)
[2018-10-11] MEDS: COAGULATION FACTOR VIIA (RECOM 2 MG INJ IV SCH ×6 (02:00→22:45)
[2018-10-11 04:09] LABS: Hematocrit 23.3 % (36.0-46.0); Hemoglobin 7.9 g/dL (12.2-16.2); Mean Corpuscular Hemoglobin 31.5 pg (28.0-32.0); Mean Corpuscular Volume 92.6 fL (80.0-100.0); Platelet Count (auto) 103 10^3/uL (140-450); Red Blood Cells 2.52 10^6/uL (4.0-5.20); Red Cell Distribution Width 15.7 % (11.8-14.3); White Blood Cell 18.3 10^3/uL (4.4-10.8)
[2018-10-11 04:11] LABS: Calcium 7.7 mg/dL (8.5-10.1)
[2018-10-11 04:13] LABS: BUN/Creatinine Ratio 6.9
[2018-10-11 04:14] LABS: Basophils % (manual) 0 (0.0-2.0); Blast Cells 0; Eosinophils % (manual) 0 (0-7); Metamyelocytes % 0; Myelocytes % 0; Promyelocytes % 0; Reactive Lymphocytes 0
[2018-10-11 04:16] LABS: INR 2.19 (0.9-1.15)
[2018-10-11 04:19] LABS: Partial Thromboplastin Time 70.7 sec (23.64-32.05)
[2018-10-11] MEDS: SODIUM BICARBONATE 50ML VIAL 150 ML in D5W/SOD CHL 0.45% 1,000 ML IV SCH ×2 (04:36→11:38)
[2018-10-11] MEDS: PHENYLEPHRINE INJ 40 MG in SODIUM CHL 0.9% 250 ML IV SCH ×3 (06:03→16:54)
[2018-10-11] MEDS ORDERED: ALBUMIN 5% 250 ML IV ONE ×3 (06:36→07:30)
[2018-10-11 06:49] LABS: Band Neutrophils % (manual) 23; Lymphocytes % (manual) 11 (10.0-50.0); Monocytes % (manual) 7 (0-12)
[2018-10-11] MEDS ORDERED: SODIUM CHL 0.9% 1000 ML BAG XX ONE (07:00)
[2018-10-11] MEDS: IPRATROPIUM BROM 0.5 MG/2.5ML INH SOL NEB SCH ×3 (07:03→18:20)
[2018-10-11] MEDS: ALBUTEROL SULF 2.5 MG/0.5ML(0.5%) NEB SOLN NEB SCH ×3 (07:03→18:20)
[2018-10-11] MEDS ORDERED: ALBUMIN 25% 100 ML IV ONE ×2 (07:23→07:30)
[2018-10-11] MEDS: VASOPRESSIN 50 UNITS in D5W 5% 247.5 ML IV SCH (07:40)
[2018-10-11] MEDS: NOREPINEPHRINE 8 MG/250ML KIT 250 ML IV SCH (07:42)
[2018-10-11] MEDS: INSULIN DRIP 100 UNIT/100ML 100 ML IV SCH (09:18)
[2018-10-11] MEDS ORDERED: PHYTONADIONE (VIT K)10 MG/ML 1ML VIAL SUBCUT SCH (10:00)
[2018-10-11] MEDS: MEROPENEM 500MG IVPB 50 ML IV SCH ×2 (10:50→22:45)
[2018-10-11] MEDS: PANTOPRAZOLE 40 MG/10 ML VIAL INJ IV SCH (10:50)
[2018-10-11] MEDS ORDERED: DESMOPRESSIN INJECTION 20 MCG in SODIUM CHL 0.9% 50 ML IV ONE (12:30)
[2018-10-11 12:44] LABS: Hematocrit 15.3 % (36.0-46.0); Mean Corpuscular Hemoglobin 32.7 pg (28.0-32.0); White Blood Cell 6.3 10^3/uL (4.4-10.8)
[2018-10-11 12:46] LABS: Platelet Count (auto) 52 10^3/uL (140-450); Red Blood Cells 1.68 10^6/uL (4.0-5.20); Red Cell Distribution Width 15.5 % (11.8-14.3)
[2018-10-11 12:51] LABS: Hemoglobin 5.5 g/dL (12.2-16.2)
[2018-10-11 12:54] LABS: Basophils % (manual) 0 (0.0-2.0); Blast Cells 0; Eosinophils % (manual) 0 (0-7); Promyelocytes % 0; Reactive Lymphocytes 0
[2018-10-11 13:00] LABS: Albumin 2.5 g/dL (3.4-5.0); Calcium 6.8 mg/dL (8.5-10.1); Potassium 4.1 mmol/L (3.5-5.1)
[2018-10-11] MEDS ORDERED: CALCIUM GLUC 4.65meq/50ml D5AE 50 ML IV ONE (13:00)
[2018-10-11 13:09] LABS: BUN/Creatinine Ratio 5.7; Bilirubin, Total 5.3 mg/dL (0.2-1.0); Total Protein 3.8 g/dL (6.4-8.2)
[2018-10-11 13:18] LABS: Lactic Acid w/Reflex 17.3 mmol/L (0.4-2.0)
[2018-10-11 13:38] LABS: Hematocrit 15.3 % (36.0-46.0); Mean Corpuscular Hemoglobin 33.4 pg (28.0-32.0); Mean Corpuscular Hgb Conc. 36.4 g/dL (32.0-36.0); Mean Corpuscular Volume 91.7 fL (80.0-100.0); Platelet Count (auto) 50 10^3/uL (140-450); Red Blood Cells 1.67 10^6/uL (4.0-5.20); Red Cell Distribution Width 15.5 % (11.8-14.3); White Blood Cell 6.1 10^3/uL (4.4-10.8)
[2018-10-11] MEDS: SODIUM BICARBONATE 50ML VIAL 100 ML in D5W 5% 1,000 ML IV SCH ×2 (13:47→23:30)
[2018-10-11 13:48] LABS: Albumin 2.5 g/dL (3.4-5.0); Calcium 6.9 mg/dL (8.5-10.1); Potassium 4.2 mmol/L (3.5-5.1)
[2018-10-11 13:49] LABS: Hemoglobin 5.6 g/dL (12.2-16.2)
[2018-10-11 13:50] LABS: Basophils % (manual) 0 (0.0-2.0); Blast Cells 0; Eosinophils % (manual) 0 (0-7); Promyelocytes % 0; Reactive Lymphocytes 0
[2018-10-11 13:50] LABS: Partial Thromboplastin Time 101.7 sec (23.64-32.05)
[2018-10-11] MEDS: ALBUMIN 25% 50 ML IV SCH ×2 (13:52→22:50)
[2018-10-11 14:16] LABS: INR 5.09 (0.9-1.15)
[2018-10-11 14:18] LABS: Bilirubin, Total 5.6 mg/dL (0.2-1.0); Total Protein 3.7 g/dL (6.4-8.2)
[2018-10-11 14:21] LABS: BUN/Creatinine Ratio 6.1
[2018-10-11 14:29] LABS: INR 4.89 (0.9-1.15)
[2018-10-11 14:31] LABS: Partial Thromboplastin Time 112.7 sec (23.64-32.05)
[2018-10-11 14:41] LABS: Band Neutrophils % (manual) 42; Lymphocytes % (manual) 10 (10.0-50.0); Metamyelocytes % 5; Monocytes % (manual) 7 (0-12); Myelocytes % 5
[2018-10-11] MEDS: DEXTROSE (50%) 50ML SYRG IV PRN ×2 (14:42→19:42)
[2018-10-11 14:47] LABS: Band Neutrophils % (manual) 34; Lymphocytes % (manual) 9 (10.0-50.0); Metamyelocytes % 1; Monocytes % (manual) 11 (0-12); Myelocytes % 4
[2018-10-11] MEDS: NITROGLYCERIN 50MG/250ML 250 ML IV SCH (16:31)
[2018-10-11] MEDS: SODIUM CHLORIDE 0.9% 500 ML IV SCH (16:31)
[2018-10-11] MEDS: PROPOFOL 100 ML IV SCH (16:53)
[2018-10-11] MEDS ORDERED: DEXTROSE (50%) 50ML SYRG IV PRN (20:00)
[2018-10-11] MEDS: InsuLIN REG 1unit/0.01ml Soln (100units/ml) SC SCH (20:00)
[2018-10-11] MEDS ORDERED: EPOETIN ALFA 10,000 UNIT/1 ML VIAL SC ONE (21:00)
[2018-10-11] MEDS ORDERED: PANTOPRAZOLE 40 MG/10 ML VIAL INJ IV SCH (22:00)
[2018-10-11] MEDS ORDERED: AMIODARONE HCL 900 MG in DEXTROSE 500 ML IV SCH (23:26)
[2018-10-11] MEDS ORDERED: AMIODARONE HCL 150 MG in D5W 5% 100 ML IV ONE (23:30)
[2018-10-12] VITALS (38 sets, daily range): BP systolic 28–147; BP diastolic 11–43
[2018-10-12] MEDS: ACCU-CHEK COMFORT CURVE STRIP VI SCH ×2 (00:30→03:30)
[2018-10-12] MEDS: InsuLIN REG 1unit/0.01ml Soln (100units/ml) SC SCH ×2 (00:30→03:30)
[2018-10-12 01:38] LABS: Basophils # (auto) 0 uL; Eosinophils # (auto) 0.4 uL; Hematocrit 19.5 % (36.0-46.0); Lymphocytes # (auto) 0.8 uL; Monocytes # (auto) 0.1 uL; Red Blood Cells 2.03 10^6/uL (4.0-5.20); Red Cell Distribution Width 15.2 % (11.8-14.3)
[2018-10-12 01:40] LABS: Basophils % (auto) 0.2 % (0.0-2.0); Lymphocytes % (auto) 8.8 % (10.0-50.0); Mean Corpuscular Hemoglobin 33.2 pg (28.0-32.0); Mean Corpuscular Hgb Conc. 34.5 g/dL (32.0-36.0); Mean Corpuscular Volume 96.2 fL (80.0-100.0); Monocytes % (auto) 1.6 % (0.0-12.0); Neutrophils # (auto) 8.1 uL; Neutrophils % (auto) 85.4 % (37.0-80.0); Platelet Count (auto) 58 10^3/uL (140-450); White Blood Cell 9.5 10^3/uL (4.4-10.8)
[2018-10-12 01:42] LABS: Nucleated Red Blood Cells % 11.8 %
[2018-10-12 01:43] LABS: Hemoglobin 6.7 g/dL (12.2-16.2)
[2018-10-12 01:54] LABS: INR 1.47 (0.9-1.15); Partial Thromboplastin Time 54.4 sec (23.64-32.05)
[2018-10-12 01:57] LABS: BUN/Creatinine Ratio 4.4; Calcium 7.3 mg/dL (8.5-10.1); Magnesium 2.4 mg/dL (1.6-2.6)
[2018-10-12] MEDS: COAGULATION FACTOR VIIA (RECOM 2 MG INJ IV SCH ×2 (02:00→06:00)
[2018-10-12 02:04] LABS: Potassium 5.9 mmol/L (3.5-5.1)
[2018-10-12] MEDS ORDERED: EPINEPHrine HCL 250 ML IV ONE ×2 (02:42→05:33)
[2018-10-12] MEDS ORDERED: SODIUM BICARBONATE 50ML VIAL 150 ML in D5W/SOD CHL 0.45% 1,000 ML IV SCH (02:45)
[2018-10-12] MEDS ORDERED: SODIUM BICARBONATE 8.4 % INJ 50ML VIAL IV ONE ×3 (02:45→08:46)
[2018-10-12] MEDS ORDERED: CALCIUM GLUC 4.65meq/50ml D5AE 50 ML IV ONE (02:45)
[2018-10-12] MEDS ORDERED: ALBUTEROL SULF 2.5 MG/0.5ML(0.5%) NEB SOLN NEB ONE (02:45)
[2018-10-12] MEDS ORDERED: EPINEPHrine HCL INJECTION 4 MG in SODIUM CHL 0.9% 250 ML IV SCH (02:45)
[2018-10-12] MEDS ORDERED: ALBUTEROL SULF 2.5 MG/0.5ML(0.5%) NEB SOLN ONE (02:56)
[2018-10-12] MEDS: VASOPRESSIN 50 UNITS in D5W 5% 247.5 ML IV SCH ×2 (03:15→05:33)
[2018-10-12] MEDS: ALBUMIN 25% 50 ML IV SCH (04:30)
[2018-10-12 05:21] LABS: Platelet Count (auto) 49 10^3/uL (140-450); White Blood Cell 11.5 10^3/uL (4.4-10.8)
[2018-10-12 05:22] LABS: Mean Corpuscular Hemoglobin 33.3 pg (28.0-32.0); Red Blood Cells 1.83 10^6/uL (4.0-5.20); Red Cell Distribution Width 15.5 % (11.8-14.3)
[2018-10-12 05:32] LABS: Hemoglobin 6.1 g/dL (12.2-16.2)
[2018-10-12 05:33] LABS: Basophils % (manual) 0 (0.0-2.0); Blast Cells 0; Eosinophils % (manual) 0 (0-7); Promyelocytes % 0; Reactive Lymphocytes 0
[2018-10-12] MEDS ORDERED: VASOPRESSIN 20 UNIT/ML ONE (05:33)
[2018-10-12 05:53] LABS: Albumin 2.8 g/dL (3.4-5.0); BUN/Creatinine Ratio 4.3; Calcium 7.8 mg/dL (8.5-10.1)
[2018-10-12 06:02] LABS: Bilirubin, Total 4.6 mg/dL (0.2-1.0); Total Protein 4.1 g/dL (6.4-8.2)
[2018-10-12 06:11] LABS: Potassium 6.6 mmol/L (3.5-5.1)
[2018-10-12 06:12] LABS: Band Neutrophils % (manual) 30; Lymphocytes % (manual) 9 (10.0-50.0)
[2018-10-12 06:13] LABS: Metamyelocytes % 8; Monocytes % (manual) 14 (0-12); Myelocytes % 6
[2018-10-12] MEDS: ALBUTEROL SULF 2.5 MG/0.5ML(0.5%) NEB SOLN NEB SCH ×2 (06:18)
[2018-10-12] MEDS: IPRATROPIUM BROM 0.5 MG/2.5ML INH SOL NEB SCH ×2 (06:18)
[2018-10-12] MEDS ORDERED: SODIUM CHL 0.9% 1000 ML BAG XX ONE (07:00)
[2018-10-12] MEDS ORDERED: DOPamine 1600MCG/ML D5W 250 ML IV SCH (07:30)
[2018-10-12] MEDS ORDERED: D5W 5% IV ONE (08:47)
[2018-10-12] MEDS ORDERED: D5W 5% 100 ML BAG IV ONE (08:47)
[2018-10-12] MEDS ORDERED: SODIUM CHL 0.9% 250 ML BAG IV ONE (08:47)
[2018-10-12] MEDS ORDERED: AMIODARONE HCL (50 MG/ ML) 3 ML VIAL IV ONE (08:47)
[2018-10-12] MEDS ORDERED: EPINEPHrine HCL 1 MG/10 ML SYRG IV ONE (08:47)
[2018-10-12] MEDS ORDERED: AMIODARONE HCL 900 MG/500ML D5W KIT IV ONE (08:47)
[2018-10-12] MEDS ORDERED: SODIUM BICARBONATE 8.4% INJ 50ML SYRINGE IV ONE (08:47)
[2018-10-12] MEDS ORDERED: NOREPINEPHRINE 8 mg/250ml D5 BAG/KIT orNS IV ONE (08:47)
[2018-10-12] MEDS ORDERED: ATROPINE SULF 1 MG/10ml SYR IM ONE (08:47)
[2018-10-12] MEDS ORDERED: DOPamine 1600mCg/ml 400MG/250ml NSorD5 KIT/BAG IV ONE (08:47)
[2018-10-14 14:18] LABS: Hepatitis A Ab IgM Negative; Hepatitis B Core IgM Negative; Hepatitis B Surface Antigen Negative (Negative); Hepatitis C Antibody Negative (Negative)
[2018-10-21] MEDS ORDERED: PHYTONADIONE (VIT K)10 MG/ML 1ML VIAL SUBCUT ONE (12:15)
== END 2018-10-12 08:48 | disposition expired | DRG 165 ==
LOC: ER 09-30 00:03 → TELE 09-30 00:04 → ER 09-30 00:17 → TELE-EAST 09-30 15:30 → ICU WEST 10-04 14:33 → DOU IN ICU 10-06 17:26 → TELE-WESTW 10-08 08:05 → ICU WEST 10-08 18:49
PROVIDERS: ADMIT Nurse Practitioner; ATTEND Internal Medicine
PROC: 5A1D70Z Performance of Urinary Filtration, Intermittent, Less than 6 Hours Per Day (ICD-10-PCS; 2018-10-01)
PROC: 5A1D70Z Performance of Urinary Filtration, Intermittent, Less than 6 Hours Per Day (ICD-10-PCS; 2018-10-03)
PROC: 4A023N8 Measurement of Cardiac Sampling and Pressure, Bilateral, Percutaneous Approach (ICD-10-PCS; principal; 2018-10-04)
PROC: B2161ZZ Fluoroscopy of Right and Left Heart using Low Osmolar Contrast (ICD-10-PCS; 2018-10-04)
PROC: B2111ZZ Fluoroscopy of Multiple Coronary Arteries using Low Osmolar Contrast (ICD-10-PCS; 2018-10-04)
PROC: 5A1D70Z Performance of Urinary Filtration, Intermittent, Less than 6 Hours Per Day (ICD-10-PCS; 2018-10-05)
PROC: 30233N1 Transfusion of Nonautologous Red Blood Cells into Peripheral Vein, Percutaneous Approach (ICD-10-PCS; 2018-10-08)
PROC: 5A1D70Z Performance of Urinary Filtration, Intermittent, Less than 6 Hours Per Day (ICD-10-PCS; 2018-10-08)
PROC: 02100Z9 Bypass Coronary Artery, One Artery from Left Internal Mammary, Open Approach (ICD-10-PCS; 2018-10-09)
PROC: 30233K1 Transfusion of Nonautologous Frozen Plasma into Peripheral Vein, Percutaneous Approach (ICD-10-PCS; 2018-10-09)
PROC: 30233R1 Transfusion of Nonautologous Platelets into Peripheral Vein, Percutaneous Approach (ICD-10-PCS; 2018-10-09)
PROC: 30233M1 Transfusion of Nonautologous Plasma Cryoprecipitate into Peripheral Vein, Percutaneous Approach (ICD-10-PCS; 2018-10-09)
PROC: 021109W Bypass Coronary Artery, Two Arteries from Aorta with Autologous Venous Tissue, Open Approach (ICD-10-PCS; 2018-10-09)
PROC: 06BP0ZZ Excision of Right Saphenous Vein, Open Approach (ICD-10-PCS; 2018-10-09)
PROC: 5A1221Z Performance of Cardiac Output, Continuous (ICD-10-PCS; 2018-10-09)
PROC: 5A1D70Z Performance of Urinary Filtration, Intermittent, Less than 6 Hours Per Day (ICD-10-PCS; 2018-10-09)
PROC: 0BH17EZ Insertion of Endotracheal Airway into Trachea, Via Natural or Artificial Opening (ICD-10-PCS; 2018-10-11)
PROC: 5A1D70Z Performance of Urinary Filtration, Intermittent, Less than 6 Hours Per Day (ICD-10-PCS; 2018-10-11)
PROC: 5A1945Z Respiratory Ventilation, 24-96 Consecutive Hours (ICD-10-PCS; 2018-10-11)
PROC: 5A12012 Performance of Cardiac Output, Single, Manual (ICD-10-PCS; 2018-10-12)
DX: I21.4 Non-ST elevation (NSTEMI) myocardial infarction (principal); K72.00 Acute and subacute hepatic failure without coma; J96.01 Acute respiratory failure with hypoxia; I13.2 Hypertensive heart and chronic kidney disease with heart failure and with stage 5 chronic kidney disease, or end stage renal disease; E44.0 Moderate protein-calorie malnutrition; N17.9 Acute kidney failure, unspecified; D68.9 Coagulation defect, unspecified; E11.22 Type 2 diabetes mellitus with diabetic chronic kidney disease; I95.3 Hypotension of hemodialysis; D69.59 Other secondary thrombocytopenia; E87.0 Hyperosmolality and hypernatremia; K72.90 Hepatic failure, unspecified without coma; E87.2 Acidosis; N18.6 End stage renal disease; I50.43 Acute on chronic combined systolic (congestive) and diastolic (congestive) heart failure; D69.6 Thrombocytopenia, unspecified; K74.60 Unspecified cirrhosis of liver; N39.0 Urinary tract infection, site not specified; E87.1 Hypo-osmolality and hyponatremia; D63.8 Anemia in other chronic diseases classified elsewhere; I65.21 Occlusion and stenosis of right carotid artery; I25.119 Atherosclerotic heart disease of native coronary artery with unspecified angina pectoris; I45.10 Unspecified right bundle-branch block; Z66 Do not resuscitate; J98.11 Atelectasis; I27.20 Pulmonary hypertension, unspecified; E86.1 Hypovolemia; I08.1 Rheumatic disorders of both mitral and tricuspid valves; Z99.2 Dependence on renal dialysis; Y92.89 Other specified places as the place of occurrence of the external cause; Z95.1 Presence of aortocoronary bypass graft; Z88.0 Allergy status to penicillin; Z88.8 Allergy status to other drugs, medicaments and biological substances; Z91.040 Latex allergy status; Z79.899 Other long term (current) drug therapy; Z68.28 Body mass index [BMI] 28.0-28.9, adult
CPT/HCPCS: 36415; 36600; 71045; 78452; 78582; 80048; 80053; 80061; 80074; 80202; 81001; 81025; 82010; 82140; 82805; 82962; 83036; 83605; 83615; 83735; 83880; 83930; 83935; 84100; 84132; 84443; 84484; 85007; 85014; 85018; 85025; 85027; 85379; 85384; 85576; 85610; 85730; 86850; 86900; 86901; 86920; 87040; 87070; 87081; 87086; 87205; 90935; 93005; 93017; 93306; 93452; 93461; 93566; 93886; 93970; 94002; 94003; 94640; 94644; 96361; 96365; 96367; 96375; 97116; 97530; 99152; A4615; C1751; C1768; C9113; G0378; J0153; J0171; J0282; J0610; J0690; J0696; J0885; J1642; J1644; J1815; J2185; J2250; J2405; J2440; J2704; J2720; J3430; J7060; P9047; Q9967